=== PATIENT | female | born 1960 | race Caucasian/White ===

== ENCOUNTER 2024-12-18 13:15 | Outpatient (AMB) | payer BC, SELFPAY ==
--- NOTE | 2024-12-18 13:17 | MHC.PC.OV ---
Vital Signs 12/18/24 13:25 Height 5 ft 2.99 in Weight 221 lb 6 oz BMI 39.2 BP 112/74 Blood Pressure Location Lt brachial Position Sitting Respiration 16 Pulse 75 Pulse Source Pulse Oximeter Temp 98.4 F Temp Source Oral Pulse Oximetry (%) 97 Oxygen Delivery Method Room Air Intake Visit Reasons: Thyroid/CPE Intake Note: New patient visit. 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 Allergies sulfamethoxazole (From Bactrim) Allergy (Intermediate, Verified 12/18/24 13:21) Hives trimethoprim (From Bactrim) Allergy (Intermediate, Verified 12/18/24 13:21) Hives Tobacco use date assessed: 12/18/24 Fall risk assessment: 1 Fall in past year Last assessed Fall Risk: 12/18/24 Dental Screening Dental Screen Date: 12/18/24 Did you have a dental visit in the last 12 months?: Yes Did you have a dental problem in the last 6 months where you did not have access to dental care?: No Was dental information given to patient?: Patient has dentist HPI HPI Comments History of Present Illness Details The patient is a 64 year old female with a past medical history of hyperlipidemia, hypothyroid, GERD, depression [facility]. CV:On atorvastatin. Hypothyroid s/p thyroidectomy [facility] 2005. On levothyroxine 112mcg daily. GI: history of bowel resection ~2006 at [facility] Urogyn: bladder lift 2004 MSK: bilateral knee pain, stable BH: Follows with psych-prescribes lexapro, buproprion. Mammo due Colonoscopy due ROS CONSTITUTIONAL: Denies weight loss, fever and chills. HEENT: Denies changes in vision and hearing. RESPIRATORY: Denies SOB and cough. CV: Denies palpitations and CP GI: Denies abdominal pain, nausea, vomiting and diarrhea. : Denies dysuria and urinary frequency. MSK: Denies new myalgia and joint pain. SKIN: Denies rash and pruritus. NEUROLOGICAL: Denies headache PSYCHIATRIC: Denies recent changes in mood. PHYSICAL EXAM: GENERAL: Alert and oriented x 3. NAD EYES: EOMI. Anicteric. HENT: Moist mucous membranes. No scleral icterus.chronic left post cervical node LUNGS: Clear to auscultation bilaterally. CARDIOVASCULAR: Regular rate and rhythm. No murmur. No JVD. ABDOMEN: Soft, non-tender +bs EXTREMITIES: No edema. Non-tender. SKIN: No rashes or lesions. Warm. NEUROLOGIC: No focal neurological deficits. CN II-XII grossly intact PSYCHIATRIC: Cooperative. Appropriate mood and affect [facility] Surgical History History of bowel resection Family History Paternal Uncle Depression Daughter Depression Son Depression Father Depression Other FH: mental illness Social History Housing: House Alcohol intake: former Comment: quit over 40 years ago Patient Tobacco Use Status: Never used Tobacco e-Cigarette/Vaping Use: Never Used Second Hand Smoke Exposure: No service: No Current occupational status: employed and retired Current occupational exposures/hazards: No Cognitive needs: No Hearing needs: No Vision needs: No Questionnaire PHQ-9 Over the last 2 weeks, how often have you been bothered by any of the following problems? 1. Little interest or pleasure in doing things: not at all 2. Feeling down, depressed, or hopeless: not at all 3. Trouble falling or staying asleep, or sleeping too much: not at all 4. Feeling tired or having little energy: not at all 5. Poor appetite or overeating: not at all 6. Feeling bad about yourself - or that you are a failure or have let yourself or your family down: not at all 7. Trouble concentrating on things, such as reading the newspaper or watching television: not at all 8. Moving or speaking so slowly that other people could have noticed. Or the opposite - being so fidgety or restless that you have been moving around a lot more than usual: not at all 9. Thoughts that you would be better off or of hurting yourself in some way: not at all Total score: 0 Depression Screening Interpretation: Negative Depression Screening Done: Yes 91934 - PHQ-9 Billing: Yes Source: Developed by Drs. Tuan Strauss, Niki Preston, Tony Burk and colleagues, with an educational wilberto from [employer]. Thrive Questionnaire Date Thrive assessed: 12/18/24 I am a: Patient What is your living situation today?: I have a steady place to live Within the past 12 months, did the food you bought not last and you didn't have the money to get more?: Never true Within the past 12 months, did you worry whether your food would run out before you got money to buy more?: Never true Do you have trouble paying for medicines?: No Do you have trouble getting transportation to medical appointments?: No Do you have trouble paying your heating and electricity bill?: No Do you have trouble taking care of your child, family member or friend?: No Do you have trouble with day-to-day activities such as bathing, preparing meals, shopping, managing finances, etc.?: No Are you currently unemployed and looking for a job?: No Are you interested in more education?: No Please select the resources that you would like help with: None Currently or been in a relationship where the following occur: No concerns reported THRIVE Score: 0 AUDIT C Alcohol Use Questionnaire (AUDIT-C) 1. How often do you have a drink containing alcohol?: Never 3. How often do you have six or more drinks on one occasion?: Never Total Score: 0 JOE-7 AMB Questionnaire JOE-7 Date JOE - 7 assessed: 12/18/24 Feeling nervous, anxious, or on edge: 0 = Not at all Not being able to stop or control worryin = Not at all Worrying too much about different things: 0 = Not at all Trouble relaxin = Not at all Being so restless that it is hard to sit still: 0 = Not at all Becoming easily annoyed or irritable: 0 = Not at all Feeling afraid as if something awful might happen: 0 = Not at all Total JOE-7 score (0-4 normal; 5-9 mild; 10-14 moderate; 15-21 severe): 0 Source: Developed by Drs. Tuan Strauss, Niki Preston, Tony Burk and colleagues, with an educational wilberto from [employer]. JOE-7 Assessment Billing JOE-7 Assessment Tool: JOE-7 Assessment 52581 Physical exam (Primary Care) Vital Signs: Last Vital Signs Temp 98.4 F 12/18/24 13:25 Pulse 75 12/18/24 13:25 Resp 16 08/29/25 13:25 BP 112/74 12/18/24 13:25 Pulse Ox 97 12/18/24 13:25 Oxygen Delivery Method Room Air 12/18/24 13:25 BMI result Body Mass Index 39.2 Tobacco/Smoking Status: Tobacco use Status Patient Tobacco Use Status Never used Tobacco 12/18/24 13:31 PHQ-9: PHQ-9 Score PHQ-9: Total score 0 12/18/24 13:20 Depression Screening Interpretation: Negative Currently or been in a relationship where the following occur: No concerns reported Coding Level of Care Code New Pt Level 4 (83396) Complex EM visit Add On G2211 Diagnoses Encounter to establish care Z76.89 Hypothyroidism, unspecified type E03.9 Hypothyroidism type: unspecified Hyperlipidemia, unspecified hyperlipidemia type E78.5 Hyperlipidemia type: unspecified Recurrent major depressive disorder, in partial remission F33.41 Depression Type: major depressive disorder Active/Remission status: in partial remission Major depression recurrence: recurrent Anxiety F41.9 Additional Codes JOE-7 Assessment Billing - JOE-7 Assessment Tool: JOE-7 Assessment 90078 ([id number]) PHQ-9 - 39133 - PHQ-9 Billing: Yes ([id number]) Assessment & Plan Assessment & Plan (1) Encounter to establish care: Code(s): Z76.89 - Persons encountering health services in other specified circumstances Category: Medical (2) Hypothyroid: Code(s): E03.9 - Hypothyroidism, unspecified Category: Medical Qualifiers: Hypothyroidism type: unspecified Qualified Code(s): E03.9 - Hypothyroidism, unspecified (3) Hyperlipidemia: Code(s): E78.5 - Hyperlipidemia, unspecified Category: Medical Qualifiers: Hyperlipidemia type: unspecified Qualified Code(s): E78.5 - Hyperlipidemia, unspecified (4) Depression: Code(s): F32.A - Depression, unspecified Category: Medical Qualifiers: Depression Type: major depressive disorder Active/Remission status: in partial remission Major depression recurrence: recurrent Qualified Code(s): F33.41 - Major depressive disorder, recurrent, in partial remission (5) Anxiety: Code(s): F41.9 - Anxiety disorder, unspecified Category: Medical Plan 64 year old female presenting to establish care past medical, surgical, social reviewed Medicaitons reconciled Mammo. colonoscopy ordered Labs prior to six month appt HTN well controlled Orders: Orders MM tomosynthesis screening BI Today Z12.31 - Encounter for screening mammogram for malignant neoplasm of breast Complete Blood Count Auto Diff 6 Months E03.9 - Hypothyroidism, unspecified, E78.5 - Hyperlipidemia, unspecified, F32.A - Depression, unspecified, F41.9 - Anxiety disorder, unspecified Comprehensive Met. Panel 6 Months E03.9 - Hypothyroidism, unspecified, E78.5 - Hyperlipidemia, unspecified, F32.A - Depression, unspecified, F41.9 - Anxiety disorder, unspecified Lipid Panel 6 Months E03.9 - Hypothyroidism, unspecified, E78.5 - Hyperlipidemia, unspecified, F32.A - Depression, unspecified, F41.9 - Anxiety disorder, unspecified TSH reflex Free T4 6 Months E03.9 - Hypothyroidism, unspecified, E78.5 - Hyperlipidemia, unspecified, F32.A - Depression, unspecified, F41.9 - Anxiety disorder, unspecified Hemoglobin A1c 6 Months E03.9 - Hypothyroidism, unspecified, E78.5 - Hyperlipidemia, unspecified, F32.A - Depression, unspecified, F41.9 - Anxiety disorder, unspecified Referrals Gastroenterology Referral Z12.11 - Encounter for screening for malignant neoplasm of colon
[2024-12-18 13:25] VITALS: BP 112/74; PULSE 75; RESP 16; TEMP 36.9; O2SAT 97; BMI 39.2
--- OUTSIDE RECORDS SUMMARY | 2024-12-18 13:33 | XMS_ITS | Encounter Summary ---
Author Organization [facility] Address [address] [place] [address] Care Team Providers Care Vp Foundation Name Role Phone Pcp, No Primary Care Provider Unavailabl e Encounter Details Date Type Department Care Team (Late st Contact Info) Description 06/15/2022 Scanned Document [facility] [address] [place] [address] Provider, External, [address] [place] [address] Social History Tobacco Use Types Packs/Day Years Used Date Smoking Tobacco: Never Assessed Comments Unknown Sex and Gender Information Value Date Recorded Sex Assigned at Female 06/11/2022 9:42 AM EST Legal Sex Female 6:22 PM EST Gender Identity Female 06/11/2022 9:42 AM EST Sexual Orientation Other 06/11/2022 9: 42 AM EST COVID-19 Exposure Response Date Recorded In the last 10 days, have yo u been in contact with someone who was confirmed or suspected to have Coronavirus/COVID-19? Unable to assess 06/15/2022 12:41 PM EST documented as of this encounter Plan of Treatment Not on file documented as of this encounter Visit Diagnoses Not on filedocumented in this encounter Care Teams Vp Foundation Relationship Specialty Start Date End Date Pcp, No [address] [place] [address] PCP - General 06/11/22 documented as of this encounter
--- OUTSIDE RECORDS SUMMARY | 2024-12-18 13:33 | XMS_ITS ---
Author Name [facility] Organization Unknown Encounters Encounter Type Encounter Reason Primary Diagnosis Location Date Ambulatory ROUTINE Other tear of me dial meniscus, current injury, right knee, initial encounter [facility] 01/16/2024 Ambulatory ROUTINE Other tear of me dial meniscus, current injury, right knee, initial encounter [facility] 04/25/2023 Ambulatory ROUTINE Other tear of me dial meniscus, current injury, left knee, initial encounter [facility] 02/14/2023 Ambulatory [facility] 06/15/2022 Care Team Organization Name Specialty Phone Email Start Date End Da te [facility] 202202/14/2023 [facility] 2022 [facility] NO PCP Primary Care 06/15/2022 06/15/2022 [facility] PCP,No Primary Care 06/15/[address] [facility] Sonny Ching Primary Care 02/27/2022 12/09/19
--- OUTSIDE RECORDS SUMMARY | 2024-12-18 13:33 | XMS_ITS | Clinical Summary ---
Author Organization [facility] Address [address] [place] [address] Care Team Providers Care Grinder Needle Tip Name Role Phone Pcp, No Primary Care Provider Unavailabl e Social History Tobacco Use Types Packs/Day Years Used Date Smoking Tobacco: Never Assessed Comments Unknown Sex and Gender Information Value Date Recorded Sex Assigned at Female 06/11/2022 9:42 AM EST Legal Sex Female 6:22 PM EST Gender Identity Female 06/11/2022 9:42 AM EST Sexual Orientation Other 06/11/2022 9: 42 AM EST Plan of Treatment Health Maintenance Due Date Last Done Comments Hepatitis C Virus Screening 1960 HIV Screening 1973 DTaP/Tdap/Td Vaccines (1 - Tdap) 09/23/1979 Pneumococcal Vaccines 50+ (1 of 1 - PCV) 2010 Zoster (Shingles) Vaccine (1 of 2) 2010 COVID-19 Vaccine (3 - 2023-2 5 season) 2023 10/13/2020, 2020 RSV Vaccine 60 years and older and Patients (1 - 1-dose 75+ series) 09/23/2035 Hepatitis B Vaccines Aged Out No long er eligible based on patient's age to complete this topic Care Teams Grinder Needle Tip Relationship Specialty Start Date End Date Pcp, [address] [place] [address] PCP - General 06/11/22
== END 2024-12-18 13:55 | disposition home or self-care (01) ==
LOC: HO.HMCFM 13:16
PROVIDERS: PCP Internal Medicine; Visit Provider Internal Medicine
DX: Z76.89 Persons encountering health services in other specified circumstances (principal); E03.9 Hypothyroidism, unspecified; E78.5 Hyperlipidemia, unspecified; F33.41 Major depressive disorder, recurrent, in partial remission; F41.9 Anxiety disorder, unspecified

== ENCOUNTER → 2024-12-18 13:15 | Outpatient (BNVA) | payer BC, SELFPAY | PROVIDERS: PCP Internal Medicine; Visit Provider Internal Medicine | DX: Z76.89 Persons encountering health services in other specified circumstances (principal); E03.9 Hypothyroidism, unspecified; E78.5 Hyperlipidemia, unspecified; F33.41 Major depressive disorder, recurrent, in partial remission; F41.9 Anxiety disorder, unspecified; Z79.899 Other long term (current) drug therapy; Z13.31 Encounter for screening for depression; Z13.39 Encounter for screening examination for other mental health and behavioral disorders | CPT/HCPCS: 96127 ==